=== PATIENT | male | born 1990 | race Hispanic/Latino ===

== ENCOUNTER 2019-11-30 13:54 | Emergency (ER) | payer SELFPAY ==
[2019-11-30] MEDS ORDERED: HYDROCODONE/APAP 7.5/325 MG TAB ONE (16:03)
--- NOTE | 2019-11-30 16:47 | RAD REPORT ---
EXAM DESCRIPTION: RAD - Ankle Right 3 View - 11/30/2019 4:39 pm CLINICAL HISTORY: Right ankle pain FINDINGS: No fracture or dislocation is seen.
--- NOTE | 2019-11-30 16:48 | RAD REPORT ---
EXAM DESCRIPTION: RAD - Tib Fib Right - 11/30/2019 4:39 pm CLINICAL HISTORY: Right leg pain FINDINGS: No fracture is seen
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
[2019-12-02 09:08] VITALS: BP 118/77; TEMP 98.3; O2SAT 98
== END 2019-11-30 17:40 | disposition home or self-care (01) ==
LOC: ER 13:54
DX: M79.604 Pain in right leg (principal); M25.571 Pain in right ankle and joints of right foot; M25.552 Pain in left hip; V43.52XA Car driver injured in collision with other type car in traffic accident, initial encounter
CPT/HCPCS: 99283